=== PATIENT | female | born 1965 | race African-American/Black ===

== ENCOUNTER 2017-08-05 14:32 | Emergency (ER) | payer OTHER ==
[~2017-08-05] VITALS: Ht 165.1 cm; Wt 68.9 kg
[~2017-08-05 14:32] MED LIST: BENTYL10 MG ORAL; CIPRODEX OTIC7.5 M1 RIGHT EAR; DOCUSATE SODIU100 MG ORAL; FERROUS SULFAT325 MG ORAL; HYDROCODON-ACE1 EA13 ORAL; IBUPROFEN600 MG ORAL; LEVAQUIN500 MG ORAL; NORCO 5-325 TA1 EACH ORAL; PERCOCET 5-3251 EACH ORAL; ZOFRAN ODT8 MG ORAL
[2017-08-05 14:54] VITALS: BP 112/67
--- NOTE | 2017-08-05 15:03 | Emergency Room Report ---
History of Present Illness General Chief Complaint: General Complaint Source: Patient Present Illness HPI 51yo female presents to ER complaining of anxiety and chest pain since this morning. States feels like someone sitting on her chest. Patient denies SOB. Reports hx of bipolar disorder; has not been on medications for over 1 year. Previously took Trileptal. Reports no hx of cardiovascular disease. Reports no history of arrhythmias. Denies seeing mental health professional recently. Patient denies suicidal ideation or thoughts of hurting others. Denies fever, abdominal pain, nausea, vomiting. Allergies: Coded Allergies: MORPHINE (Verified Allergy, Unknown, Shortness of Breath, 02/04/16) SULFA (SULFONAMIDE ANTIBIOTICS) (Verified Allergy, Unknown, Itching, ) TRAMADOL (Verified Allergy, Unknown, Itching, 02/04/16) Uncoded Allergies: SULFA (Allergy, Unknown, 08/05/17) Patient History Past Medical History: see triage record, psych hx Social History: Denies: smoking, alcohol use, drug use Reviewed Nursing Documentation: PMH: Agreed, PSxH: Agreed Nursing Documentation-PMH Hx Cardiac Problems: No Hx Asthma: No Hx COPD: No Hx Cancer: No Hx Gastrointestinal Problems: Yes - hernia,constipation,fibroid cysts History Of Psychiatric Problem: Yes - anxiety, bipolar Hx Neurological Problems: No Review of Systems All Other Systems: negative except mentioned in HPI Physical Exam Vital Signs Date Time Temp Pulse Resp B/P (MAP) Pulse Ox O2 Delivery O2 Flow Rate FiO2 08/05/17 14:29 98.2 72 16 112/67 98 Room Air 98.2 Sp02 EP Interpretation: reviewed, normal General Appearance: well appearing, no apparent distress, alert, GCS 15 Head: normocephalic, atraumatic Eyes: bilateral eye normal inspection, bilateral eye PERRL ENT: hearing grossly normal, normal pharynx, no angioedema, normal voice, uvula midline, moist mucus membranes Neck: full range of motion Respiratory: lungs clear, normal breath sounds, no rhonchi, no respiratory distress, no accessory muscle use, no wheezing, speaking full sentences Cardiovascular #1: regular rate, rhythm, no edema Gastrointestinal: non tender, soft, no mass, non-distended, no guarding, no rebound Genitourinary: no CVA tenderness Musculoskeletal: back normal, digits/nails normal, gait/station normal, normal range of motion, non-tender Neurologic: alert, oriented x3, responsive, motor strength/tone normal, sensory intact Skin: no rash Lymphatic: no adenopathy Medical Decision Making PA Attestation Dr. Pappas is my supervising Physician whom patient management has been discussed with. Diagnostic Impression: Primary Impression: Hx of bipolar disorder ER Course Pt. presents to the ED Ddx considered but are not limited to anxiety, depression, arrhythmia, IA. Vital signs: are WNL, pt. is afebrile Ordered labs, CXR, and EKG to rule out cardiac pathology. Low suspicion for underlying cardiac disease. Patient has no thoughts of suicide or hurting others. Do not believe patient is danger to herself or others. ER COURSE: EKG negative for ST elevations, arrhythmia. CXR negative for acute disease Labs unremarkable Troponin negative. Discussed result with patient. Patient resting comfortably in bed. Patient requesting sandwich, states feeling hungry. Patient requesting to be discharged, wants to catch her bus before it gets too late. Informed patient symptoms likely related to anxiety and psych history. Informed patient to followup with mental health urgent care or psychiatrist or mental health professional for further treatment. Provided patient with contact information for mental health urgent care. Patient reports understanding and agreement to treatment plan. Patient vitals WNL prior to discharge. DISCHARGE: Rx provided for Trileptal for 2 weeks. Patient instructed to follow up with mental health care for further treatment and medication. At this time pt is stable for d/c to home. Patient is resting comfortably, in no acute distress, nontoxic appearing, talking without difficulty. Patient to take medications as instructed Will provide with patient care instructions and any necessary prescriptions. Care plan and follow-up instructions provided. Patient instructed to follow-up with primary care provider in 3 - 5 days. Patient questions asked and answered. Patient reports understanding and agreement to treatment plan. ER precautions given. Patient instructed to return to ER immediately for any new or worsening of symptoms including but not limited to increasing SOB, persistent fever. Labs Test 08/05/17 15:36 White Blood Count 5.0 K/UL (4.8-10.8) Red Blood Count 5.23 M/UL (4.20-5.40) Hemoglobin 14.9 G/DL (12.0-16.0) Hematocrit 44.3 % (37.0-47.0) Mean Corpuscular Volume 85 FL (80-99) Mean Corpuscular Hemoglobin 28.5 PG (27.0-31.0) Mean Corpuscular Hemoglobin Concent 33.6 G/DL (32.0-36.0) Red Cell Distribution Width 11.5 % (11.6-14.8) Platelet Count 107 K/UL (150-450) Mean Platelet Volume 8.3 FL (6.5-10.1) Neutrophils (%) (Auto) 58.8 % (45.0-75.0) Lymphocytes (%) (Auto) 32.8 % (20.0-45.0) Monocytes (%) (Auto) 6.2 % (1.0-10.0) Eosinophils (%) (Auto) 0.3 % (0.0-3.0) Basophils (%) (Auto) 1.9 % (0.0-2.0) Sodium Level 139 MMOL/L (136-145) Potassium Level 4.1 MMOL/L (3.5-5.1) Chloride Level 106 MMOL/L (98-107) Carbon Dioxide Level 28 MMOL/L (21-32) Anion Gap 5 mmol/L (5-15) Blood Urea Nitrogen 9 mg/dL (7-18) Creatinine 0.7 MG/DL (0.55-1.30) Estimat Glomerular Filtration Rate > 60 mL/min (>60) Glucose Level 99 MG/DL (74-106) Calcium Level 8.9 MG/DL (8.5-10.1) Total Bilirubin 0.5 MG/DL (0.2-1.0) Aspartate Amino Transf (AST/SGOT) 15 U/L (15-37) Alanine Aminotransferase (ALT/SGPT) 14 U/L (12-78) Alkaline Phosphatase 62 U/L (46-116) Total Creatine Kinase 114 U/L (26-308) Creatine Kinase MB 0.8 NG/ML (0.0-3.6) Creatine Kinase MB Relative Index 0.7 Troponin I 0.000 ng/mL (0.000-0.056) Total Protein 6.7 G/DL (6.4-8.2) Albumin 3.2 G/DL (3.4-5.0) Globulin 3.5 g/dL Albumin/Globulin Ratio 0.9 (1.0-2.7) Thyroid Stimulating Hormone (TSH) 0.355 uiU/mL (0.358-3.740) Free Thyroxine 0.76 NG/DL (0.76-1.46) EKG Diagnostic Results Rate: normal Rhythm: NSR ST Segments: no acute changes ASA given to the pt in ED: No PA Scribe Text Shelton Meneses PA-C Rhythm Strip Diag. Results EP Interpretation: yes Rate: 60 Rhythm: NSR, no PVC's, no ectopy PA Scribe Text Shelton Meneses PA-C Chest X-Ray Diagnostic Results Chest X-Ray Diagnostic Results : Chest X-Ray Ordered: Yes # of Views/Limited/Complete: 1 View Indication: Chest Pain EP Interpretation: Yes PA Xray: Interpretation reviewed, by supervising MD, and agrees with findings. Interpretation: no consolidation, no effusion, no pneumothorax, no acute cardiopulmonary disease Impression: No acute disease MICHELLE Scribe Text Shelton Meneses PA-C Last Vital Signs Date Time Temp Pulse Resp B/P (MAP) Pulse Ox O2 Delivery O2 Flow Rate FiO2 08/05/17 14:54 98.2 72 16 112/67 98 Room Air 98.2 Disposition: HOME, SELF-CARE Condition: Stable Scripts Oxcarbazepine* (TRILEPTAL*) 600 Mg Tablet 600 MG PO DAILY for 14 Days, #14 TAB Prov: Cristopher Meneses 08/05/17 Referrals: [facility],REFERR[facility] (PCP) Additional Instructions: Followup with primary care provider in 3 -5 days. Followup with mental health professional for further treatment. Mental Health Urgent Care paperwork provided to patient. Take medications as directed. Patient questions asked and answered. ER precautions given, patient instructed to return to ER immediately for any new or worsening of symptoms. Cristopher Meneses Aug 05, 2017 15:03
[2017-08-05 16:01] LABS: BASOPHILS % (AUTO) 1.9 % (0.0-2.0); EOSINOPHILS % (AUTO) 0.3 % (0.0-3.0); HEMATOCRIT 44.3 % (37.0-47.0); HEMOGLOBIN 14.9 G/DL (12.0-16.0); LYMPHOCYTES % (AUTO) 32.8 % (20.0-45.0); MEAN CORPUSCULAR VOLUME 85 FL (80-99); MONOCYTES % (AUTO) 6.2 % (1.0-10.0); NEUTROPHILS % (AUTO) 58.8 % (45.0-75.0); PLATELET COUNT 107 K/UL (150-450); RED BLOOD COUNT 5.23 M/UL (4.20-5.40); RED CELL DISTRIBUTION WIDTH 11.5 % (11.6-14.8)
[2017-08-05 16:18] LABS: ANION GAP 5 mmol/L (5-15); BLOOD UREA NITROGEN 9 mg/dL (7-18); CALCIUM 8.9 MG/DL (8.5-10.1); CARBON DIOXIDE 28 MMOL/L (21-32); CHLORIDE 106 MMOL/L (98-107); CREATININE 0.7 MG/DL (0.55-1.30); POTASSIUM 4.1 MMOL/L (3.5-5.1); SODIUM 139 MMOL/L (136-145)
--- NOTE | 2017-08-05 16:20 | Diagnostic Imaging Report ---
Indication: Chest pain Technique: One view of the chest Comparison: 02/04/2016 Findings: Lungs and pleural spaces are clear. There is mild thoracic scoliotic deformity. Normal heart size. Impression: No acute process
[2017-08-05 16:31] LABS: ALANINE AMINOTRANSFERASE 14 U/L (12-78); ALBUMIN 3.2 G/DL (3.4-5.0); ALBUMIN/GLOBULIN RATIO 0.9 (1.0-2.7); ALKALINE PHOSPHATASE 62 U/L (46-116); ASPARTATE AMINO TRANSFERASE 15 U/L (15-37); BILIRUBIN,TOTAL 0.5 MG/DL (0.2-1.0); CKMB 0.8 NG/ML (0.0-3.6); CREATINE KINASE 114 U/L (26-308)
[2017-08-05] MEDS ORDERED: TRILEPTAL600 MG PO (17:37)
[2017-08-05] MEDS ORDERED: Acetaminophen 500mg (ES) tab ORAL ONE (17:45)
[2017-08-05 17:51] VITALS: BP 117/71
--- NOTE | 2017-08-18 17:00 | Cardiology Report ---
APPROVED REPORT EKG Measurement Heart [id number] Normal sinus rhythm Normal ECG
== END 2017-08-05 17:52 | disposition home or self-care (01) ==
LOC: EDBD 14:32 → EMR 14:45
DX: F41.9 Anxiety disorder, unspecified (principal); F31.9 Bipolar disorder, unspecified; Z88.2 Allergy status to sulfonamides; Z88.5 Allergy status to narcotic agent
CPT/HCPCS: 36415; 71045; 80053; 82550; 82553; 84439; 84443; 84484; 85025; 93005; 99284